=== PATIENT | female | born 1980 | race American Indian/Alaskan Native ===

== ENCOUNTER 2016-09-28 20:42 | Emergency (ER) | payer SELFPAY ==
[2016-09-28 21:01] VITALS: BP 152/108
== END 2016-09-29 04:00 | disposition left against medical advice (07) ==
LOC: ED 20:42
DX: R07.9 Chest pain, unspecified (principal); R42 Dizziness and giddiness; I10 Essential (primary) hypertension; E78.00 Pure hypercholesterolemia, unspecified; F17.200 Nicotine dependence, unspecified, uncomplicated; Z53.21 Procedure and treatment not carried out due to patient leaving prior to being seen by health care provider
CPT/HCPCS: 81025; 93005; 93010

== ENCOUNTER 2017-11-16 18:50 | Emergency (ER) | payer SELFPAY ==
[2017-11-16 19:26] VITALS: BP 142/98
== END 2017-11-16 21:50 | disposition left against medical advice (07) ==
LOC: ED 18:50
DX: M79.605 Pain in left leg (principal); Z53.21 Procedure and treatment not carried out due to patient leaving prior to being seen by health care provider
CPT/HCPCS: 93005; 93010

== ENCOUNTER 2020-03-11 08:25 | Emergency (ER) | payer OTHER ==
[2020-03-11 08:52] VITALS: BP 144/99
--- NOTE | 2020-03-11 08:54 | Event Note ---
ED Screening Note Date of service: 03/11/20 Time: 08:53 ED Screening Note: Patient complains of loss of appetite, cough, and palpitations x6 days Admits to nausea and vomiting Denies shortness of breath Heart rate noted to be 120 This initial assessment/diagnostic orders/clinical plan/treatment(s) is/are subject to change based on patients health status, clinical progression and re- assessment by fellow clinical providers in the ED. Further treatment and workup at subsequent clinical providers discretion. Patient/guardian urged not to elope from the ED as their condition may be serious if not clinically assessed and managed. Initial orders include: Labs EKG Chest x-ray
[2020-03-11 10:16] LABS: Basophils % (Auto) 1.1 % (0.0-1.8); Eosinophils % (Auto) 0.1 % (0.0-4.3); Hematocrit 47.5 % (30.3-42.9); Hemoglobin 16.1 gm/dl (10.1-14.3); Lymphocytes # (Auto) 1.4 K/mm3 (1.2-5.4); Lymphocytes % (Auto) 31.1 % (13.4-35.0); Mean Corpuscular HGB Conc 34 % (30-34); Mean Corpuscular Volume 92 fl (79-97); Monocytes # (Auto) 0.6 K/mm3 (0.0-0.8); Monocytes % (Auto) 12.7 % (0.0-7.3); Red Blood Count 5.15 M/mm3 (3.65-5.03); Red Cell Distribution Width 13.1 % (13.2-15.2)
[2020-03-11 10:20] LABS: Platelet Count 191 K/mm3 (140-440)
[2020-03-11 10:31] LABS: Bilirubin,Urine SM (Negative); Blood,Urine NEG (Negative); Color,Urine Amber (Yellow); Mucus,Urine 3+ /HPF
[2020-03-11 10:35] LABS: Ictotest,Urine Negative (Negative); Protein,Urine >500 mg/dL (Negative)
[2020-03-11 10:37] LABS: Alanine Aminotransferase 118 units/L (7-56); Albumin 4.9 g/dL (3.9-5); Blood Urea Nitrogen 6 mg/dL (7-17); Calcium 10.2 mg/dL (8.4-10.2); Hemolysis Index 8
[2020-03-11 10:39] LABS: BUN/Creatinine Ratio 10
--- NOTE | 2020-03-11 11:03 | XRay Report ---
XR chest routine 2V INDICATION / CLINICAL INFORMATION: palpitations COMPARISON: None available. FINDINGS: SUPPORT DEVICES: None. HEART / MEDIASTINUM: No significant abnormality. LUNGS / PLEURA: Lungs are clear. Costophrenic sulci are sharp. No pneumothorax. ADDITIONAL FINDINGS: No significant additional findings. IMPRESSION: 1. No acute findings. Signer Name: Andrea Bowser MD Signed: 03/11/2020 10:58 AM Workstation Name: [id number]
[2020-03-11] MEDS ORDERED: POTASSIUM CHLORIDE 10 MEQ 10 MEQ/100 ML BAG IV ONE (11:44)
[2020-03-11] MEDS ORDERED: POTASSIUM CHLORIDE ER 20 MEQ TAB PO ONE (11:44)
[2020-03-11] MEDS ORDERED: SODIUM CHLORIDE 0.9% 1000 ML 1,000 ML IV ONE ×2 (11:45→14:42)
--- NOTE | 2020-03-11 11:45 | Emergency Department Report ---
ED General Adult HPI - General Chief complaint: Arrhythmia/Palpitations Stated complaint: COUGH Time Seen by Provider: 03/11/20 08:52 Source: patient Mode of arrival: Ambulatory Limitations: No Limitations - History of Present Illness Initial comments: Patient is a 39-year-old female who presents emergency department for evaluation of 4 to 5 days of nausea and vomiting. Patient denies abdominal pain unless she is vomiting during which she experiences mild crampy umbilical discomfort. Patient denies fever, denies diarrhea. Patient notes that her heart rate does seem tired the past several days. Patient denies cough, denies sore throat. Patient denies history of abdominal surgery. - Related Data Home Medications Medication Instructions Recorded Confirmed Last Taken Lisinopril/Hydrochlorothiazide 20 mg PO QDAY 06/18/15 06/18/15 Unknown [Zestoretic 20-25 mg] propranoloL [Inderal] 40 mg PO PRN PRN 06/18/15 06/18/15 Unknown Allergies Allergy/AdvReac Type Severity Reaction Status Date / Time No Known Allergies Allergy Unverified 06/18/15 15:40 ED Review of Systems ROS: Stated complaint: COUGH Other details as noted in HPI Comment: All other systems reviewed and negative Constitutional: denies: chills, fever Eyes: denies: eye pain, eye discharge, vision change ENT: denies: ear pain, throat pain Respiratory: denies: cough, shortness of breath, wheezing Cardiovascular: denies: chest pain, palpitations Endocrine: no symptoms reported Gastrointestinal: as per HPI. denies: diarrhea Genitourinary: denies: urgency, dysuria, discharge Musculoskeletal: denies: back pain, joint swelling, arthralgia Skin: denies: rash, lesions Neurological: denies: headache, weakness, paresthesias Psychiatric: denies: anxiety, depression Hematological/Lymphatic: denies: easy bleeding, easy bruising ED Past Medical Hx - Past Medical History Previous Medical History?: Yes Hx Hypertension: Yes Additional medical history: high cholestrol - Surgical History Past Surgical History?: Yes Additional Surgical History: breast biopsy - Social History Smoking Status: Current Every Day Smoker Substance Use Type: Alcohol - Medications Home Medications: Home Medications Medication Instructions Recorded Confirmed Last Taken Type Lisinopril/Hydrochlorothiazide 20 mg PO QDAY 06/18/15 06/18/15 Unknown History [Zestoretic 20-25 mg] propranoloL [Inderal] 40 mg PO PRN PRN 06/18/15 06/18/15 Unknown History ED Physical Exam - General Limitations: No Limitations General appearance: alert, in no apparent distress - Head Head exam: Present: atraumatic, normocephalic - Eye Eye exam: Present: normal appearance - ENT ENT exam: Present: mucous membranes moist - Neck Neck exam: Present: normal inspection - Respiratory Respiratory exam: Present: normal lung sounds bilaterally. Absent: respiratory distress - Cardiovascular Cardiovascular Exam: Present: regular rate, normal rhythm. Absent: systolic murmur, diastolic murmur, rubs, gallop - GI/Abdominal GI/Abdominal exam: Present: soft, tenderness (Moderate right upper quadrant tenderness), normal bowel sounds - Extremities Exam Extremities exam: Present: normal inspection - Back Exam Back exam: Present: normal inspection - Neurological Exam Neurological exam: Present: alert, oriented X3 - Psychiatric Psychiatric exam: Present: normal affect, normal mood - Skin Skin exam: Present: warm, dry, intact, normal color. Absent: rash ED Course Vital Signs 03/11/20 03/11/20 03/11/20 08:48 11:56 12:16 Temperature 98.8 F Pulse Rate 120 H Respiratory 20 18 18 Rate Blood Pressure 144/99 O2 Sat by Pulse 100 100 Oximetry - Reevaluation(s) Reevaluation #1: 03/11/20 12:11 Patient initially treated with IV and p.o. potassium, IV normal saline, IV Toradol, IV Zofran. Reevaluation #2: 03/11/20 14:49 Following reassuring ultrasound and lab work, patient continues to complain of pain and nausea, and stating she feels no better than she did on arrival. Additional IV NS, Reglan, and CT abdomen pelvis ordered Reevaluation #3: 03/11/20 15:57 CT negative, patient reevaluated in no acute distress, tolerating p.o. Abdomen soft nontender. ED Medical Decision Making - Lab Data Result diagrams: 03/11/20 09:52 03/11/20 09:52 Referring Physician: HANDY LOZANO Patient Name: KRISTEN AGUDELO Date of : 1980 Sex: Female Report Date: 2020-03-11 Report Status: Finalized [facility] [address] [place] [address] Ultrasound Report Signed Patient: KRISTEN AGUDELO MR#: [id number] : 1980 Acct:[id number] Age/Sex: 39 / F ADM Date: 03/11/20 Loc: ED Attending Dr: Ordering Physician: HANDY LOZANO MD Date of Service: 03/11/20 Procedure(s): US abdomen limited Accession Number(s): [id number] cc: HANDY LOZANO MD LIMITED RUQ ABDOMINAL ULTRASOUND INDICATION / CLINICAL INFORMATION: RUQ pain. COMPARISON: No relevant prior imaging study available. FINDINGS: PANCREAS: The pancreas is largely obscured by shadowing from overlying bowel gas. ABDOMINAL AORTA: No significant abnormality. IVC: No significant abnormality. LIVER: The liver measures 15.7 cm in length. The liver demonstrates increased echogenicity. No focal hepatic lesion. PORTAL VEIN: Normal hepatopedal blood flow in the main portal vein. GALLBLADDER: The gallbladder is unremarkable. There is no cholelithiasis, gallbladder wall thickening, or pericholecystic fluid. BILE DUCTS: No significant abnormality. Common bile duct measures 2 mm. RIGHT KIDNEY: No significant abnormality visualized. FREE FLUID: None. ADDITIONAL FINDINGS: None. IMPRESSION: 1. Diffuse increased hepatic echogenicity, most consistent with fatty infiltration. 2. Otherwise unremarkable right upper quadrant ultrasound. Signer Name: Jeremiah Wheatley MD Signed: 03/11/2020 2:28 PM Workstation Name: [id number] Transcribed By: JS Dictated By: JEREMIAH WHEATLEY MD Electronically Authenticated By: JEREMIAH WHEATLEY MD Signed Date/Time: 03/11/20 142 DD/ 26 TD/TT: Referring Physician: HANDY LOZANO Patient Name: KRISTEN AGUDELO Date of : 1980 Sex: Female Report Date: 2020-03-11 Report Status: Finalized [address] [address] Cat Scan Report Signed Patient: KRISTEN AGUDELO MR#: [id number] : 1980 Acct:[id number] Age/Sex: 39 / F ADM Date: 03/11/20 Loc: ED Attending Dr: Ordering Physician: HANDY LOZANO MD Date of Service: 03/11/20 Procedure(s): CT abdomen pelvis w con Accession Number(s): [id number] cc: HANDY LOZANO MD CT abdomen pelvis w con INDICATION: abdominal pain. TECHNIQUE: All CT scans at this location are performed using the following dose modulation technique: Automated exposure control. CONTRAST: Omnipaque 300, 100 cc IV injection. COMPARISON: None available. CT ABDOMEN: The parenchymal organs are unremarkable in appearance other than diffuse fatty infiltration of the liver. Negative for abdominal mass, fluid or inflammation. The bowel is not dilated or thickened. Scattered diverticula are seen diffusely. CT PELVIS: Negative for mass, adenopathy or inflammation. The appendix is normal. IMPRESSION: 1. Fatty infiltration of liver. 2. Noninflamed colonic diverticulosis. 3. Negative for obstruction or localized inflammation. Signer Name: Tee Martinez MD Signed: 03/11/2020 3:44 PM Workstation Name: [id number] Transcribed By: ES Dictated By: Tee Martinez MD Electronically Authenticated By: Tee Martinez MD Signed Date/Time: 03/11/20 154 DD/ 154 TD/TT: Lab Results 03/11/20 03/11/20 03/11/20 Range/Units 09:36 09:52 09:52 WBC 4.5 (4.5-11.0) K/mm3 RBC 5.15 H (3.65-5.03) M/mm3 Hgb 16.1 H (10.1-14.3) gm/dl Hct 47.5 H (30.3-42.9) % MCV 92 (79-97) fl MCH 31 (28-32) pg MCHC 34 (30-34) % RDW 13.1 L (13.2-15.2) % Plt Count 191 (140-440) K/mm3 Lymph % (Auto) 31.1 (13.4-35.0) % Beckham % (Auto) 12.7 H (0.0-7.3) % Eos % (Auto) 0.1 (0.0-4.3) % Baso % (Auto) 1.1 (0.0-1.8) % Lymph # (Auto) 1.4 (1.2-5.4) K/mm3 Beckham # (Auto) 0.6 (0.0-0.8) K/mm3 Eos # (Auto) 0.0 (0.0-0.4) K/mm3 Baso # (Auto) 0.0 (0.0-0.1) K/mm3 Seg Neutrophils % 55.0 (40.0-70.0) % Seg Neutrophils # 2.5 (1.8-7.7) K/mm3 Sodium 134 L (137-145) mmol/L Potassium 2.8 L* (3.6-5.0) mmol/L Chloride 82.3 L (98-107) mmol/L Carbon Dioxide 36 H (22-30) mmol/L Anion Gap 19 mmol/L BUN 6 L (7-17) mg/dL Creatinine 0.6 (0.6-1.2) mg/dL Estimated GFR > 60 ml/min BUN/Creatinine Ratio 10 % Glucose 121 H (65-100) mg/dL Calcium 10.2 (8.4-10.2) mg/dL Magnesium (1.7-2.3) mg/dL Total Bilirubin 2.00 H (0.1-1.2) mg/dL AST 213 H (5-40) units/L ALT 118 H (7-56) units/L Alkaline Phosphatase 146 H (35-129) units/L Total Protein 8.4 H (6.3-8.2) g/dL Albumin 4.9 (3.9-5) g/dL Albumin/Globulin Ratio 1.4 % Lipase (13-60) units/L HCG, Qual (Negative) Urine Color Ju (Yellow) Urine Turbidity Clear (Clear) Urine pH 6.0 (5.0-7.0) Ur Specific Linden 1.027 (1.003-1.030) Urine Protein >500 (Negative) mg/dL Urine Glucose (UA) 50 (Negative) mg/dL Urine Ketones 20 (Negative) mg/dL Urine Blood Neg (Negative) Urine Nitrite Neg (Negative) Urine Bilirubin Sm (Negative) Urine Ictotest Negative (Negative) Urine Urobilinogen 4.0 (<2.0) mg/dL Ur Leukocyte Esterase Neg (Negative) Urine WBC (Auto) 2.0 (0.0-6.0) /HPF Urine RBC (Auto) 1.0 (0.0-6.0) /HPF U Epithel Cells (Auto) 4.0 (0-13.0) /HPF Urine Mucus 3+ /HPF Plasma/Serum Alcohol (0-0.07) % 03/11/20 03/11/20 03/11/20 Range/Units 09:52 09:52 12:04 WBC (4.5-11.0) K/mm3 RBC (3.65-5.03) M/mm3 Hgb (10.1-14.3) gm/dl Hct (30.3-42.9) % MCV (79-97) fl MCH (28-32) pg MCHC (30-34) % RDW (13.2-15.2) % Plt Count (140-440) K/mm3 Lymph % (Auto) (13.4-35.0) % Beckham % (Auto) (0.0-7.3) % Eos % (Auto) (0.0-4.3) % Baso % (Auto) (0.0-1.8) % Lymph # (Auto) (1.2-5.4) K/mm3 Beckham # (Auto) (0.0-0.8) K/mm3 Eos # (Auto) (0.0-0.4) K/mm3 Baso # (Auto) (0.0-0.1) K/mm3 Seg Neutrophils % (40.0-70.0) % Seg Neutrophils # (1.8-7.7) K/mm3 Sodium (137-145) mmol/L Potassium (3.6-5.0) mmol/L Chloride (98-107) mmol/L Carbon Dioxide (22-30) mmol/L Anion Gap mmol/L BUN (7-17) mg/dL Creatinine (0.6-1.2) mg/dL Estimated GFR ml/min BUN/Creatinine Ratio % Glucose (65-100) mg/dL Calcium (8.4-10.2) mg/dL Magnesium 1.70 (1.7-2.3) mg/dL Total Bilirubin (0.1-1.2) mg/dL AST (5-40) units/L ALT (7-56) units/L Alkaline Phosphatase (35-129) units/L Total Protein (6.3-8.2) g/dL Albumin (3.9-5) g/dL Albumin/Globulin Ratio % Lipase 14 (13-60) units/L HCG, Qual Negative (Negative) Urine Color (Yellow) Urine Turbidity (Clear) Urine pH (5.0-7.0) Ur Specific Linden (1.003-1.030) Urine Protein (Negative) mg/dL Urine Glucose (UA) (Negative) mg/dL Urine Ketones (Negative) mg/dL Urine Blood (Negative) Urine Nitrite (Negative) Urine Bilirubin (Negative) Urine Ictotest (Negative) Urine Urobilinogen (<2.0) mg/dL Ur Leukocyte Esterase (Negative) Urine WBC (Auto) (0.0-6.0) /HPF Urine RBC (Auto) (0.0-6.0) /HPF U Epithel Cells (Auto) (0-13.0) /HPF Urine Mucus /HPF Plasma/Serum Alcohol (0-0.07) % 03/11/20 Range/Units 12:04 WBC (4.5-11.0) K/mm3 RBC (3.65-5.03) M/mm3 Hgb (10.1-14.3) gm/dl Hct (30.3-42.9) % MCV (79-97) fl MCH (28-32) pg MCHC (30-34) % RDW (13.2-15.2) % Plt Count (140-440) K/mm3 Lymph % (Auto) (13.4-35.0) % Beckham % (Auto) (0.0-7.3) % Eos % (Auto) (0.0-4.3) % Baso % (Auto) (0.0-1.8) % Lymph # (Auto) (1.2-5.4) K/mm3 Beckham # (Auto) (0.0-0.8) K/mm3 Eos # (Auto) (0.0-0.4) K/mm3 Baso # (Auto) (0.0-0.1) K/mm3 Seg Neutrophils % (40.0-70.0) % Seg Neutrophils # (1.8-7.7) K/mm3 Sodium (137-145) mmol/L Potassium (3.6-5.0) mmol/L Chloride (98-107) mmol/L Carbon Dioxide (22-30) mmol/L Anion Gap mmol/L BUN (7-17) mg/dL Creatinine (0.6-1.2) mg/dL Estimated GFR ml/min BUN/Creatinine Ratio % Glucose (65-100) mg/dL Calcium (8.4-10.2) mg/dL Magnesium (1.7-2.3) mg/dL Total Bilirubin (0.1-1.2) mg/dL AST (5-40) units/L ALT (7-56) units/L Alkaline Phosphatase (35-129) units/L Total Protein (6.3-8.2) g/dL Albumin (3.9-5) g/dL Albumin/Globulin Ratio % Lipase (13-60) units/L HCG, Qual (Negative) Urine Color (Yellow) Urine Turbidity (Clear) Urine pH (5.0-7.0) Ur Specific Linden (1.003-1.030) Urine Protein (Negative) mg/dL Urine Glucose (UA) (Negative) mg/dL Urine Ketones (Negative) mg/dL Urine Blood (Negative) Urine Nitrite (Negative) Urine Bilirubin (Negative) Urine Ictotest (Negative) Urine Urobilinogen (<2.0) mg/dL Ur Leukocyte Esterase (Negative) Urine WBC (Auto) (0.0-6.0) /HPF Urine RBC (Auto) (0.0-6.0) /HPF U Epithel Cells (Auto) (0-13.0) /HPF Urine Mucus /HPF Plasma/Serum Alcohol < 0.01 (0-0.07) % Vital Signs 03/11/20 03/11/20 03/11/20 08:48 11:56 12:16 Temperature 98.8 F Pulse Rate 120 H Respiratory 20 18 18 Rate Blood Pressure 144/99 O2 Sat by Pulse 100 100 Oximetry - EKG Data -: EKG Interpreted by Me (Sinus tachycardia 117, no ST-T changes, normal QRS) Critical care attestation.: If time is entered above; I have spent that time in minutes in the direct care of this critically ill patient, excluding procedure time. ED Disposition Clinical Impression: Abdominal pain, Nausea & vomiting, Hypokalemia Disposition: DC- TO HOME OR SELFCARE Is pt being admited?: No Condition: Stable Instructions: Nausea and Vomiting, Adult, Abdominal Pain During , [id number] Referrals: PRIMARY CARE,MD [Primary Care Provider] - 3-5 Days
[2020-03-11] MEDS ORDERED: ONDANSETRON 4 MG/2 ML INJ ONE (12:08)
[2020-03-11] MEDS ORDERED: KETOROLAC 30 MG/1 ML INJ IV ONE (12:09)
[2020-03-11] MEDS ORDERED: ONDANSETRON 4 MG/2 ML INJ IV ONE ×2 (12:09→12:11)
--- NOTE | 2020-03-11 14:33 | Ultrasound Report ---
LIMITED RUQ ABDOMINAL ULTRASOUND INDICATION / CLINICAL INFORMATION: RUQ pain. COMPARISON: No relevant prior imaging study available. FINDINGS: PANCREAS: The pancreas is largely obscured by shadowing from overlying bowel gas. ABDOMINAL AORTA: No significant abnormality. IVC: No significant abnormality. LIVER: The liver measures 15.7 cm in length. The liver demonstrates increased echogenicity. No focal hepatic lesion. PORTAL VEIN: Normal hepatopedal blood flow in the main portal vein. GALLBLADDER: The gallbladder is unremarkable. There is no cholelithiasis, gallbladder wall thickening , or pericholecystic fluid. BILE DUCTS: No significant abnormality. Common bile duct measures 2 mm. RIGHT KIDNEY: No significant abnormality visualized. FREE FLUID: None. ADDITIONAL FINDINGS: None. IMPRESSION: 1. Diffuse increased hepatic echogenicity, most consistent with fatty infiltration. 2. Otherwise unremarkable right upper quadrant ultrasound. Signer Name: eCdrick Wheatley MD Signed: 03/11/2020 2:28 PM Workstation Name: [id number]
[2020-03-11] MEDS ORDERED: METOCLOPRAMIDE 10 MG/2 ML INJ IV ONE (14:41)
--- NOTE | 2020-03-11 15:49 | Cat Scan Report ---
CT abdomen pelvis w con INDICATION: abdominal pain. TECHNIQUE: All CT scans at this location are performed using the following dose modulation technique: Automated exposure control. CONTRAST: Omnipaque 300, 100 cc IV injection. COMPARISON: None available. CT ABDOMEN: The parenchymal organs are unremarkable in appearance other than diffuse fatty infiltrati on of the liver. Negative for abdominal mass, fluid or inflammation. The bowel is not dilated or thickened. Scattered diverticula are seen diffusely. CT PELVIS: Negative for mass, adenopathy or inflammation. The appendix is normal. IMPRESSION: 1. Fatty infiltration of liver. 2. Noninflamed colonic diverticulosis. 3. Negative for obstruction or localized inflammation. Signer Name: Tee Martinez MD Signed: 03/11/2020 3:44 PM Workstation Name: [id number]
== END 2020-03-11 16:15 | disposition home or self-care (01) ==
LOC: ED 08:25
DX: E87.6 Hypokalemia (principal); I10 Essential (primary) hypertension; F17.200 Nicotine dependence, unspecified, uncomplicated; Z79.899 Other long term (current) drug therapy
CPT/HCPCS: 36415; 71046; 74177; 76705; 80053; 81001; 83690; 83735; 84703; 85025; 93005; 96365; 96366; 96375; 99284; J1885; J2405; J3480; J7030; Q9967; 80320; G0480